=== PATIENT | female | born 1995 | race Caucasian/White ===

== ENCOUNTER 2019-03-03 11:02 | Emergency (ER) | payer OTHER, BC ==
[2019-03-03] MEDS: ACETAMINOPHEN 500 MG TAB PO (12:13)
[2019-03-03 12:17] LABS: URINE BLOOD (Dip) POC 2+ (NEGATIVE); URINE GLUCOSE (Dip) POC Negative (NEGATIVE); URINE KETONES (Dip) POC Negative (NEGATIVE); URINE LEUKOCYTE EST (Dip) POC Trace (NEGATIVE); URINE NITRITE (Dip) POC Negative (NEGATIVE); URINE TOTAL PROTEIN POC Negative (NEGATIVE)
== END 2019-03-03 13:50 | disposition home or self-care (01) ==
LOC: FTE 11:02
DX: R51 Headache (principal); R11.10 Vomiting, unspecified
CPT/HCPCS: 81003; 81025; 99283